=== PATIENT | male | born 1955 | race Caucasian/White ===

== ENCOUNTER 2017-05-13 10:06 | Emergency (ER) | payer SELFPAY ==
[~2017-05-13] VITALS: Ht 175.3 cm; Wt 98.2 kg
[~2017-05-13 10:06] MED LIST: ASPI81 PO; CIME300T PO; GLUCTAB PO; HYDR12.56 PO; IRBE150T49 PO; LORT7.5T3 PO; PRED20 PO; PROM1SUP12 PR; SIMV20 PO
[2017-05-13 10:37] VITALS: BP 165/76; PULSE 77; RESP 16; TEMP 98; O2SAT 99
[2017-05-13] MEDS ORDERED: AMOX875T PO (10:50)
[2017-05-13] MEDS ORDERED: TRIA1SPR6 EACH NARE (10:50)
--- NOTE | 2017-05-13 10:57 | PD ---
HPI Chief Complaint: ENT Complaint Time Seen by Provider: 10:42 Travel History International Travel<30 days: No Contact w/Intl Traveler<30days: No Traveled to known affect area: No History of Present Illness HPI 61-year-old male that presents to the ED for evaluation of left ear issues. Per patient she's not been able to hear from the left ear. Per patient he has been applying some earwax removal kit with minimal relief. Per patient he was not coming back which is what prompted evaluation. Per patient he had something similar about 3 years ago and was given Nasacort with improvement of symptoms. He does not know she has an ear infection or something else. He has no pain. No problems with the right ear. No trauma or injury. No submersion injury. PFSH Past Medical History Hx Anticoagulant Therapy: Yes (asa 81mg) Atrial Fibrillation: Yes Heart Rhythm Problems: Yes (A-FIB) Cardiac Catheterization: No Cardiovascular Problems: Yes (htn on meds) High Cholesterol: Yes Congestive Heart Failure: No Coronary Artery Disease: Yes Diabetes: Yes (type 2) Diminished Hearing: No Hiatal Hernia: Yes (DX'D 8 MOS AGO, PMD WATCHING) Hypertension: Yes Myocardial Infarction: No Past Surgical History Coronary Artery Bypass Graft: No Tympanostomy Tube: No Other Surgery: No Social History Alcohol Use: Yes (2-3 DAILY) Tobacco Use: No Substance Use: No Allergies-Medications (Allergen,Severity, Reaction): Coded Allergies: No Known Allergies (Verified Adverse Reaction, Unknown, 05/13/17) Reported Meds & Prescriptions Reported Meds & Active Scripts Active Nasacort Allergy 24Hr Nasal (Triamcinolone Nasal) 55 Mcg Spr 2 [place] EACH NARE DAILY Amoxicillin 875 Mg Tab 875 Mg PO BID 10 Days Tagamet (Cimetidine) 300 Mg Tab 300 Mg PO QID Deltasone (Prednisone) 20 Mg Tab 20 Mg PO DIRECTED 2 TABS PO DAILY FOR 3 DAYS,THEN 1 TAB PO DAILY FOR 3 DAYS. Lortab 7.5/500 (Acetaminophen/Hydrocodone Bitart) Tab 1 Tab PO Q4HPRN FOR PAIN Phenergan 25 mg supp (Promethazine HCl) 25 Mg Sup 25 Mg ND Q6HPRN FOR NAUSEA/VOMITING Reported Avapro (Irbesartan) 150 Mg Tab 150 Mg PO DAILY Glucophage XR 24 HR (Metformin HCl) 500 Mg Tab 500 Mg PO BID Hydrochlorothiazide (Miscellaneous Medication) 12.5 Mg Cap 12.5 Mg PO DAILY Aspirin 81 Mg Tab 81 Mg PO DAILY Zocor (Simvastatin) 20 Mg Tab 20 Mg PO HS Review of Systems Except as stated in HPI: all other systems reviewed are Neg Physical Exam Narrative GENERAL: Well-nourished, well-developed patient in no apparent distress. SKIN: Warm and dry. HEAD: Atraumatic. Normocephalic. EYES: Pupils equal and round reactive to light and accommodation. No scleral icterus. No injection or drainage. ENT: No nasal bleeding or discharge. Mucous membranes pink and moist. TMs are clear with no sign of infection or perforation on the right ear but the family has slight perforation with appears to be liquid coming out of it on the left ear. TMs appear to be somewhat swollen but not erythematous. No mastoid tenderness. Ear canals are intact bilaterally. No lymphadenopathy. Nostril mucosa is red and moist with clear mucus noted. No sinus tenderness to palpation noted. Tonsils are not enlarged or swollen. No ulvua Deviation. Tongue is midline. NECK: Trachea midline. No JVD. No meningeal signs noted CARDIOVASCULAR: Regular rate and rhythm. RESPIRATORY: No accessory muscle use. Clear to auscultation. Breath sounds equal bilaterally. GASTROINTESTINAL: Abdomen soft, non-tender, nondistended. Hepatic and splenic margins not palpable. MUSCULOSKELETAL: Extremities without clubbing, cyanosis, or edema. No obvious deformities. NEUROLOGICAL: Awake and alert. No obvious cranial nerve deficits. Motor grossly within normal limits. Five out of 5 muscle strength in the arms and legs. Normal speech. PSYCHIATRIC: Appropriate mood and affect; insight and judgment normal. Data Data Last Documented VS Vital Signs Date Time Temp Pulse Resp B/P (MAP) Pulse Ox O2 Delivery O2 Flow Rate FiO2 05/13/17 10:37 98.0 77 16 165/76 (105) 99 Orders Orders Ed Discharge Order (05/13/17 10:51) [facility] Medical Decision Making Medical Screen Exam Complete: Yes Emergency Medical Condition: Yes Medical Record Reviewed: Yes Differential Diagnosis Otitis media versus externa versus perforated eardrum Narrative Course 61-year-old male that presents to the ED for evaluation of inability to hear from the left ear. Patient was properly examined and was found to have signs and symptoms consistent with appears to be perforated eardrum. Likely from congestion but cannot rule out infection. Did recommend starting amoxicillin, Nasacort which patient has used in the past with results. Patient was also told to take [id number] antihistamines to help with the symptoms and help get rid of the congestion. At this time I recommend not putting anything else in the left ear as he does have a perforated eardrum. Patient will be given names of a couple of. Nose and throat in the area that he will need to follow up if symptoms not improving about 2 weeks. Follow with PCP. See ED worsening symptoms. Diagnosis Primary Impression: Otitis media Qualified Codes: H66.012 - Acute suppurative otitis media with spontaneous rupture of ear drum, left ear Additional Impression: Perforated ear drum Qualified Codes: H72.92 - Unspecified perforation of tympanic membrane, left ear Referrals: Loi Aburto MD, Anthony T. MD Patient Instructions: General Instructions Additional Instructions: Motrin and Tylenol for pain and fever. You can use [id number] antihistamine as needed for runny nose and congestion. Drink plenty of fluids. Follow-up with PCP. See ED for worsening symptoms. Med/Other Pt SpecificInfo: Prescription(s) given Scripts Triamcinolone Nasal (Nasacort Allergy 24Hr Nasal) 55 Mcg Spr 2 SPRAY EACH NARE DAILY for Allergies, #1 BOTTLE 0 Refills Prov: Jose Manuel Florian MD 05/13/17 Amoxicillin (Amoxicillin) 875 Mg Tab 875 MG PO BID for Infection for 10 Days, #20 TAB 0 Refills Prov: Jose Manuel Florian MD 05/13/17 Disposition: 01 DISCHARGE HOME Condition: Stable Johann Singh May 13, 2017 10:57
== END 2017-05-13 11:02 | disposition home or self-care (01) ==
LOC: PHEFT 10:06
DX: H66.012 Acute suppurative otitis media with spontaneous rupture of ear drum, left ear (principal); I48.91 Unspecified atrial fibrillation; I10 Essential (primary) hypertension; E78.00 Pure hypercholesterolemia, unspecified; E11.9 Type 2 diabetes mellitus without complications; I25.10 Atherosclerotic heart disease of native coronary artery without angina pectoris; Z79.82 Long term (current) use of aspirin; Z79.84 Long term (current) use of oral hypoglycemic drugs
CPT/HCPCS: 99283